=== PATIENT | female | born 1990 | race Caucasian/White ===

== ENCOUNTER 2022-10-26 08:00 | Outpatient (RCR) | payer MEDICAID, SELFPAY ==
--- NOTE | 2022-10-26 10:12 | BH.SGPN.GN ---
Behaviors/Verbalizations/Mental Status: []Eye contact is good. Motor activity is appropriate. Appearance is casual. Speech is Appropriate. Mood is anxious and dysthymic. Affect is congruent. Thoughts are linear and logical. No evidence of psychosis. Client Response/Progress/Benefit: []Pt new to iop tx, did well to remain an engaged participant in group discussions. Attentive during psychoeducation on SMART goals (Specific, Measurable, Achievable, Realistic, and Time-bound) and engaged in group experiential activity. Participated in an interactive discussion with peers in which they worked together to define what a goal is and the benefits of having goals. Benefits identified included; provides motivation, increased confidence, needed for growth, gives a sense of accomplishment, and help promote healthy change behaviors. Participated in interactive discussion in which group identified barriers to setting goals and following through with goals. Barriers identified included; lack of motivation, procrastination, criticism from self/others, unrealistic expectations, outside stressors, and not knowing where to start. Benefited from increased awareness of benefits and strategies for goal-setting. Will continue in IOP to prevent decompensation, improve mood stability, and improve ability to function at baseline. Narrative Note: []
--- NOTE | 2022-10-26 11:12 | BH.SGPN.GN ---
Behaviors/Verbalizations/Mental Status: []Eye contact is good. Alert and oriented. Motor activity is appropriate. Appearance is casual. grooming is appropriate. Speech is Appropriate. Mood is depressed. Affect is congruent. Thoughts are linear and logical. No evidence of psychosis or hallucinations. Client Response/Progress/Benefit: []Client was engaged during discussion and willing to complete the worksheet challenging them to develop a personal SMART goal. Client chose the goal of taking her medications as prescribed each day for a week. Client stated this will benefit her by establishing a more consistent routine and improving mood stability. Client identified barriers which included: forgetting, lack of time, procrastination, and running out of meds. Client receptive to identifying solutions for these barriers and willing to begin working on this goal. Benefited from this group by developing a short-term SMART goal related to mental health. Will continue IOP tx to improve mental health sx management and prevent decompensation. Narrative Note: []
--- NOTE | 2022-10-27 09:05 | BH.SGPN.GN ---
Behaviors/Verbalizations/Mental Status: [] Eye contact is good. Motor activity is appropriate. Appearance is casual. Speech is Appropriate. Mood is euthymic. Affect is congruent. Thoughts are linear and logical. No evidence of psychosis. Reviewed daily check in sheet and pt reports 3/5 for suicidal thoughts and 3/5 for intent. This is consistent with yesterday's scores. Client Response/Progress/Benefit: [] Pt participated at times during the group discussions. Attentive. Daily symptom tracker notes 3/5 for depression and 3/5 for anxiety. Reports several mental health wins since yesterday which included ?going to the gym ?for the first time in several months and cleaning her house. States that this was the first time that she thoroughly cleaned the house in a long time as well. Increased motivation yesterday after attending her first IOP day. Shared stressors. Benefited from group support, encouragement, and feedback. Narrative Note: []
--- NOTE | 2022-10-27 10:00 | BH.SGPN.GN ---
Behaviors/Verbalizations/Mental Status: []Pt alert and oriented, casually dressed and groomed. Eye contact good. Motor activity appropriate. Speech within normal limits. Affect constricted, mood anxious and depressed. Thoughts linear, logical, no signs of hallucinations or delusions. Client Response/Progress/Benefit: []Pt was an active participant AEB contributing to discussion, taking notes, and engaging in group activity. Connected with the topic of pitfalls and listened to group discussion on barriers that prevent from choosing a healthier path to mental wellness. Group worked together to identify examples of personal pitfalls which included; not setting boundaries, using unhealthy coping skills, and procrastination. Pt did well in the group activity, able to make connections to how lack of communication and awareness make it nearly impossible to overcome pitfalls. Pt benefited from group as pt learned to better identify potential barriers to improving mental health symptoms. Pt will continue IOP tx to prevent decompensation, improve overall functioning, and reduce negative thinking patterns. Narrative Note: []
--- NOTE | 2022-10-27 11:00 | BH.SGPN.GN ---
Behaviors/Verbalizations/Mental Status: []Pt alert and oriented, neatly dressed and groomed. Eye contact good. Motor activity appropriate. Speech within normal limits. Affect congruent to mood, mood anxious and depressed. Thoughts linear, logical, no signs of hallucinations or delusions. Client Response/Progress/Benefit: []Pt receptive of session, engaged throughout AEB pt actively listening and contributing to discussion, as well as taking notes.? Pt participated in the experiential activity and did well to communicate ideas with peers and manage emotions. Pt and group processed how the emotions and perspective of the group impacted the activity. Group worked together to identify different coping skills to help manage pitfalls. Pt identified pitfalls they struggle with such as feeling guilty ?constantly,? black and white thinking, and lack of boundaries. ?Pt plans to work on these pitfalls by continuing coming to IOP and learning coping skills. Benefited from identifying personal pitfalls and strategies to overcome these pitfalls. Will continue IOP tx to prevent decompensation, improve daily functioning, and combat distorted thought patterns. Narrative Note: []
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
--- NOTE | 2022-10-28 10:10 | BH.SGPN.GN ---
Behaviors/Verbalizations/Mental Status: []Pt alert and oriented, neatly dressed and groomed. Eye contact good. Motor activity appropriate. Speech within normal limits. Affect constricted, mood depressed. Thoughts linear, logical, no signs of hallucinations or delusions. Client Response/Progress/Benefit: []Pt participated at times during group discussions. Attentive during psychoeducation on communication styles. Participated during interactive discussion on obstacles to effective communication which included; giving the silent treatment, assumptions, and communicating through behaviors. Pt was placed in small group and was engaged in identifying benefits and consequences of each communication style. Pt reports connecting most with the passive communication style which results in pt not getting needs met. Benefited from increased understanding of communication styles and the impact they have on mental wellness. Will continue in IOP to prevent decompensation, improve daily functioning, and increase healthy coping skills. Narrative Note: []
[2022-10-28 10:35] VITALS: BP 159/108; PULSE 76
--- NOTE | 2022-10-28 11:10 | BH.SGPN.GN ---
Behaviors/Verbalizations/Mental Status: []Client alert and oriented, casually dressed and groomed. Eye contact fair. Motor activity appropriate. Speech within normal limits. Affect constricted, mood anxious. Thoughts linear, logical, no signs of hallucinations or delusions. Client Response/Progress/Benefit: []Client responded well to session AEB client listening attentively to others and providing input during group discussion on the pay offs and costs of the different communication styles. Client stated she is most often a passive communicator because finds it easier to take the blame in situations instead of stand up for herself. Client stated being passive has negatively impacted her self-esteem and confidence. Client used mostly communication during activity, listened to others ideas. Attentive during psychoeducation on assertive communication and I statements. Client seemed to benefit from increasing awareness of healthy strategies to improve communication. Client will continue IOP tx to improve daily functioning, increase use of healthy coping skills and prevent decompensation. Narrative Note: []
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
--- NOTE | 2022-10-28 13:07 | BH.DR.ITP ---
Initial Treatment Plan Patient Information Visit Information: ADMISSION DATE: EXPECTED LOS: 4-6 weeks Problems/Symptoms Problem #1:: Mood instability Symptom:: Sadness, anhedonia, hopelessness, worthlessness, guilt, biological disruption of sleep, passive thoughts of , decreased concentration, passive suicidal ideation Problem #2:: Anxiety Symptom:: Worry, rumination, panic attacks, flashbacks, avoidance, reexperiencing
--- NOTE | 2022-10-28 15:42 | BH.MDN_ITS ---
Multi-Disciplinary Note - Note 45-min Individual Time Started:: 11:40 Date: 10/28/22 Purpose of session/treatment goals addressed:: Purpose of session was to gather background information, build rapport, identify current symptoms and stressors, and identify treatment goals for IOP. 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 Client shared she has an extensive history of dating current X off and on for the last 15 years. Client reported in 2019 she got from her ex-. Client shared she shares custody of two children with her ex-. Client stated he lives in [place] so doesn't see the children frequently. Client stated following the divorce she started dating her now ex-girlfriend. Client shared the first year of the relationship went well and client was in a healthy mindset the time. Client reported her now ex-girlfriend started to drink alcohol often during their second year of being together which led to significant issues within their relationship. Client stated her ex frequently cheated on client in the last year or two of their rela tionship. Client reported she would forgive her ex but nothing changed. 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 Client reported she continues to communicate with her ex-girlfriend. Client became tearful when discussing the idea of cutting off contact with her ex. Client says she is currently dating somebody else for the last two months but is having a hard time not communicating with her ex. Client reported her self-esteem and confidence is low which she believes contributes to her maintaining connection with her ex because she's not sure she deserves better. Client reported her current girlfriend is kind, understanding, and ?doesn't have any red flags?. Client stated she has done an IOP in the past after inpatient hospitalization and 2015. Client reported she found the program to be helpful and is hopeful being reminded of healthy coping skills can get her back on track. 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 Client stated she is having difficulty with depressed mood and anxiety. Client reported having decrease motivation which leads to not getting her housework and college work completed. Clear responded well to psychoeducation about behavior activation. Client worked with therapist to create small To Do List in which client can choose one thing from each list per day with goal of accomplishing three small tasks daily. Client stated she jakub sosaes this goal is realistic. Risks/Concerns:: Pt reports suicidal thoughts daily, denies suicidal intention or plan. Client's two children are protective factors. Future focused. Reports able to keep self safe. Progress Toward Goals/Plan:: No progress observed given it's client's second day in IOP. Session focused on building rapport and developing individual treatment goals while in IOP. Client to continue IOP to improve daily functioning, increase healthy coping, and prevent decompensation. Time Stopped:: 12:30
--- NOTE | 2022-10-28 17:01 | BH.MTP_ITS ---
Master Treatment Plan - Patient Information Program Physician:: Dr. Mcgarry Primary Therapist:: Dodie Radford, [facility] - Psychiatric Diagnoses Psychiatric Diagnoses:: 1. Bipolar 2 disorder. 2. Generalized anxiety disorder. 3. PTSD. 4. Cluster B traits. 5. History of bulimia with purging by emesis Diagnosis Code(s):: F31.81 - Estimated LOS Estimated LOS (in weeks):: 6 Problem/Goal #1 - Problem/Goal #1 Stated Goal:: Client will improve mood management and reduce suicidal ideations, feelings of hopelessness, and depressive symptoms. Functional Impact: The patient is a 32-year-old female with a history of anxiety and bipolar disorder who referred herself to the [facility] IOP program for worsening symptoms of depression and passive thoughts of . She recently had a break-up with a longtime girlfriend she has been on and off with since many years. Pt reports due to break up she had additional stressors of moving to a new house, children adjusting to a new school and daycare, and changing job locations. Mental health has been impacting her work functioning AEB being sent home several times due to crying at work. The patient endorses a depressed mood with low energy, feelings of hopelessness, worthlessness, guilt, anhedonia, and low motivation. She has 2-3 panic attacks per week. - Objectives Objective #1 Stated Objective: Client will learn and utilize 2-3 healthy coping strate gies/distress tolerance skills to manage mood instability. Interventions: Therapist and group will utilize CBT techniques to assist client with understanding the connection between thoughts, feelings and behaviors. Education will be provided on behavioral activation. Therapist will assist client in learning internal coping strategies to manage depressive symptoms, along with helping client identify triggers. Therapist and group will teach DBT distress tolerance skills to improve emotion regulation. Discharge Criteria: Client will have achieved this goal when can verbalize and has practiced at least 2 healthy coping strategies that successfully manage depressive symptoms. Objective #2 Stated Objective: Pt will decrease depressive symptoms AEB pt?s score on the DSM 5 cross-cutting measure and improve pt?s daily functioning. Interventions: Through groups and individual therapy, pt will be provided with education on cognitive distortions, mistaken beliefs, and identifying and combating negative self-talk. Therapist will assist pt with getting back into the activities she once enjoyed as well as increasing healthy coping strategies. Discharge Criteria: Pt will have met this goal when pt?s score on the DSM 5 cross cutting measure for depression has been decreased and per pt?s report daily functioning has improved. Problem/Goal #2 - Problem/Goal #2 Stated Goal:: Client will reduce overall frequency, intensity, and duration of anxiety to improve functioning AEB self-report and reduction on the anxiety domain of the DSM-5 cross-cutting scales. Functional Impact: The patient is a 32-year-old female with a history of anxiety and bipolar disorder who referred herself to the [facility] IOP program for worsening symptoms of depression and passive thoughts of . She recently had a break-up with a longtime girlfriend she has been on and off with since many years. Pt reports due to break up she had additional stressors of moving to a new house, children adjusting to a new school and daycare, and changing job locations. Mental health has been impacting her work functioning AEB being sent home several times due to crying at work. The patient endorses a depressed mood with low energy, feelings of hopelessness, worthlessness, guilt, anhedonia, and low motivation. She has 2-3 panic attacks per week. - Objectives Objective #1 Stated Objective: Client will learn and implement 2-3 calming skills to reduce overall anxiety and manage anxiety. Interventions: Through individual and group counseling will teach the client calming/relaxation skills (e.g., muscle relaxation, mindful breathing) and how to discriminate better between relaxation and tension; teach the client how to apply these skills to his/her daily life. Discharge Criteria: Able to identify and consistently use 3 calming skills for anxiety. Objective #2 Stated Objective: Client will identify 2-3 cognitive distortions that lead to rumination and learn 2-3 ways to manage these thoughts to better manage anxiety as shown by reduced DSM-5 scores for anxiety. Interventions: Through individual and group counseling will provide education on the most common cognitive distortions and teach client the connection between thoughts, emotions, and feelings. Therapist will assist client in identifying, challenging, and replacing dysfunctional thoughts with positive, more realistic thoughts. Discharge Criteria: Able to identify 2-3 common cognitive distortion that exacerbate his anxiety and be able to identify strategies to reframe and challenge these distortions.
== END 2022-10-28 23:59 ==
LOC: BHIOP 08:00
PROVIDERS: Referring Provider Psychiatry & Neurology Psychiatry; Visit Provider Psychiatry & Neurology Psychiatry
DX: F31.81 Bipolar II disorder (principal); F43.10 Post-traumatic stress disorder, unspecified; F41.1 Generalized anxiety disorder
CPT/HCPCS: 90792; H2012; H2020; S9480; T1002; 90834

== ENCOUNTER 2022-10-29 08:23 | Outpatient (RCR) | payer MEDICAID, SELFPAY ==
[2022-10-29 00:44] VITALS: BP 159/108; PULSE 76
--- NOTE | 2022-11-09 10:00 | BH.SGPN.GN ---
Behaviors/Verbalizations/Mental Status: [] Eye contact is good. Motor activity is appropriate. Appearance is casual. Speech is Appropriate. Mood is euthymic. Affect is congruent. Thoughts are linear and logical. No evidence of delusions or hallucinations. Client Response/Progress/Benefit: [] Pt was an active participant in group discussions and activity. Attentive during psychoeducation and provided insight into obstacles in the way of mental wellness. Pt shared her picture depicting her current mental health reality with the group. She described her current reality as feeling overwhelmed, difficulty accomplishing goals, and difficulty functioning. Pt's desired reality is having healthy support, feel more stable, and improved functioning. Pt identified barriers that get in the way of desired reality include: poor boundaries, difficulty managing depression, afraid to ask for help, and lack of self-care. Benefited from taking look at current mental health state and obstacles for progress. Will continue in IOP to improve confidence, challenge negative thinking, and prevent decompensation.
--- NOTE | 2022-11-09 11:08 | BH.SGPN.GN ---
Behaviors/Verbalizations/Mental Status: []Pt alert and oriented, neatly dressed and groomed. Eye contact good. Motor activity appropriate. Speech within normal limits. Affect congruent, mood euthymic. Thoughts linear, logical, no signs of hallucinations or delusions. Client Response/Progress/Benefit: []Pt engaged during activity, encouraging peers and contributed as group brainstormed ideas on how to cope with internal barriers that keep pts stuck from moving towards goals. Able to identify barriers to desired reality. Identified barriers to current reality to include: poor boundaries, lack of motivation, being afraid to ask for help, and lack of self-care. Pt wants to work on overcoming the barrier of lack of motivation by setting goals for one small task at a time. Benefited from group by identifying obstacles and solutions to desired reality.? Pt will continue IOP tx to increase mood stability, combat distortions, and improve self-esteem. Narrative Note: []
--- NOTE | 2022-11-09 15:15 | BH.MDN ---
Multi-Disciplinary Note - Note 45-min Individual Time Started:: 09:10 Date: 11/09/22 Purpose of session/treatment goals addressed:: Purpose of session was to address goals 1 and 2 from MTP. Eye Contact:: Good Motor Activity:: Appropriate Appearance:: Casual Speech:: Appropriate Mood:: Euthymic Affect:: Congruent Thoughts:: Linear, Logical, No evidence of hallucinations/delusions noted Staff Interventions:: CBT techniques, rapport building, strengths perspective, goal setting, taught coping skills - relationships on a spectrum (healthy, unhealthy, and abusive) characteristics. Client Response:: Client reported she accomplished goal from last session of doing 3 intentions each day. Client stated she was able to get her bedroom clean by following the intentions. Client stated she also believes her Wellbutrin has been improving her mood, decreased racing thoughts, and improved motivation which has made it easier to apply the skills/strategies discussed in therapy. Client stated she made the decision to break up with her girlfriend because realized she couldn't be the best partner for her girlfriend at this time. Client reported she thinks it will be helpful to be single so she can focus on improving herself and learn to be okay if she isn't in a relationship. Client stated she is continuing to talk with her ex-girlfriend that she was with for 3 years. Client reported her ex is getting addiction treatment, but client is being cautious with her connection to this ex. Client recognizes being raised in an environment in which her biological father was a alcoholic and seeing her mom in additional unhealthy relationships, has impacted the relationships client has maintained throughout her life. Client stated she believes her low confidence and decreased self-esteem also impacts relationships/social connections she gets involved in. Client connected with material provided about healthy relationships, unhealthy relationships, and abusive relationships. Client reported she struggles with identifying what she is good at, but with time stated she is a good mom, caring, and creative. Client stated she enjoys crafting, video games, and reading. Receptive to strategies on increase confidence. Client stated small goal is to either do a lauren work or cross stitch to get back into things she used to enjoy. Client open to starting an accomplishments journal and will continue to identify daily intentions. Risks/Concerns:: Denies current suicidal ideation, plan or intention. Client future focused. Children are identified protective factors. Progress Toward Goals/Plan:: Progress noted with client reporting improved mood, decreased racing thoughts, and improved motivation. Client followed through with goal from last session of completing three intentions per day and focusing on cleaning her bedroom. Client made decision to end current relationship to give time to focus on being independent and improving herself. Client is to continue IOP to maintain gains, continue use of healthy coping skills, and prevent decompensation. Time Stopped:: 10:00
--- NOTE | 2022-11-10 09:00 | BH.SGPN.GN ---
Behaviors/Verbalizations/Mental Status: []Eye contact is good. Motor activity is appropriate. Appearance is casual. Speech is Appropriate. Mood is euthymic. Affect is congruent. Thoughts are linear and logical. No evidence of psychosis. Reviewed daily check in sheet, no signs of suicidal ideations, plan, or intent. Client Response/Progress/Benefit: [] Pt responded well to session, attentive and providing support. Pt reports feeling relieved this morning as pt has been very consistent with her medications and making it a priority. Pt shared because of this, pt feels like her mood has improved and she is able to utilize more coping skills. Pt has been using mindfulness to be more present and she is also experiencing less racing thoughts. Pt's stressor today is that parenting is difficult and her kids were not listening well this morning. Pt appeared to benefit from giving herself credit in medication compliance. Pt will continue IOP tx to promote mood stability, improve self-care, and reduce negative thinking. Narrative Note: []
--- NOTE | 2022-11-10 10:10 | BH.SGPN.GN ---
Behaviors/Verbalizations/Mental Status: [] Eye contact is good. Motor activity is appropriate. Appearance is casual. Speech is Appropriate. Mood is anxious. Affect is congruent. Thoughts are linear and logical. No evidence of psychosis. Client Response/Progress/Benefit: [] Pt participated at times during the group discussions. Active participant in experiential activity. Attentive during psychoeducation. Pt provided input during discussion on types of social supports which included; family, friends, PCP, mental health providers, support groups, pets, ourselves, community classes, etc. Pt along with the group identified mental health benefits of social support which patient and group identified as; it can help with emotional release, help one to feel heard, validation, distraction, they can encourage us, provide motivation, provide accountability, and boost our mood. Pt along with peers also worked together to identify obstacles to utilizing support which included; feeling like one doesn't deserve support, past negative experiences, cognitive distortions, and avoidance/mood. Benefited from increased awareness of mental health benefits of social support and obstacles that prevent one from utilizing support. Will continue in IOP to maintain safety, prevent decompensation, and increase healthy coping skills. Narrative Note: []
--- NOTE | 2022-11-11 09:05 | BH.SGPN.GN ---
Behaviors/Verbalizations/Mental Status: [] Eye contact is good. Motor activity is appropriate. Appearance is casual. Speech is Appropriate. Mood is anxious. Affect is congruent. Thoughts are linear and logical. No evidence of psychosis. Reviewed daily check in sheet and no reports of suicidal ideations or intent. Client Response/Progress/Benefit: [] Pt participated at times during the group discussion. Attentive. Emotion for today is ?Calm?. Daily symptom tracker notes 2/5 for depression and anxiety. Mental health wins include ending a relationship. Shared how this was a win b/c in the past she would have avoided the conflict and awkwardness of breaking up with someone. Shared how this often led to being in relationships she did not want to be in for extended periods of time which impacted her mental health. She is practicing being ?more in the present? and has noticed benefits of this with her kids. Current stressors is finances. Benefited from group support, encouragement, and feedback. Will continue in IOP to prevent decompensation, stabilize mood, and increase healthy coping skills. ? Narrative Note: []
--- NOTE | 2022-11-11 10:10 | BH.SGPN.GN ---
Behaviors/Verbalizations/Mental Status: []Pt alert and oriented, neatly dressed and groomed. Eye contact good. Motor activity appropriate. Speech within normal limits. Affect congruent, mood euthymic. Thoughts linear, logical, no signs of hallucinations or delusions. Client Response/Progress/Benefit: []Pt was an active participant in group discussions. Participated with peers in experiential activity. Pt participated in an interactive discussion with peers in which they worked together to define what coping skills are. Group then identified unhealthy coping skills which included; isolating, sleeping to avoid, drugs and alcohol, and poor boundaries. Pt displayed insight that she struggles with sitting with the uncomfortable, but pt is learning to set more boundaries. Reflected that this adds more stress to pt?s life and worsens mental health symptoms. Benefited from increased awareness and education the benefits of having a healthy coping repertoire and consequences of unhealthy coping on mental health and relationships. Will continue IOP tx to promote mood stability, increase use of healthy coping skills, and combat distortions. Narrative Note: []
--- NOTE | 2022-11-11 11:10 | BH.SGPN.GN ---
Behaviors/Verbalizations/Mental Status: []Client alert and oriented, casually dressed and groomed. Eye contact good. Motor activity appropriate. Speech within normal limits. Affect congruent, mood euthymic. Thoughts linear, logical, no signs of hallucinations or delusions Client Response/Progress/Benefit: []Client responded well to session, taking notes and contributing. Group discussed the different categories of coping skills which included distraction, emotional release, grounding, self-love, and thought challenging. Client participated in creating a coping skills ?menu? from the five categories of coping skills. Client's coping skill menu included: journaling, mindfulness, talking to supports, setting boundaries, and reminding self two truths can exist at the same time. Appeared to benefit from increasing repertoire of healthy coping skills. Will continue IOP to continue use of healthy coping, challenge distorted thoughts, maintain boundaries, and prevent decompensation.
--- NOTE | 2022-11-11 11:47 | PCM.BH.PN_ITS ---
Progress Note Progress Note: History of Present Illness/Interim History: The patient is a 32-year-old female with a history of anxiety and bipolar disorder who is seen in follow-up at the [facility] health IOP program. I last saw the patient 2 weeks ago and at that time Wellbutrin was added to her me dication regimen. The patient states that she has been learning valuable skills in the IOP program and according to the staff the patient has been engaged in making progress. She is still broken up with her ex-girlfriend. The patient states that her sleep is better and she is not napping as much during the day now. She feels the Wellbutrin has helped her have more energy and feel more motivated during the day to be able to get things done. She states that the Wellbutrin is really helping her to be able to get out of bed in the morning and feel optimistic. She is tolerating it well with no side effects. She denies any hopelessness now. She denies passive thoughts of and suicidal ideation also. Work is now going better for her also. She has no symptoms of sofiya. Current Psychiatric Medications: [] Wellbutrin XL 150 mg p.o. every morning (started 2 weeks ago); Zoloft 150 mg p.o. daily; BuSpar 10 mg p.o. twice daily Mental Status Examination: [] The patient is a 32-year-old female who appears normal for stated age and is casually dressed and groomed with good hygiene. She has no psychomotor agitation or retardation. She is cooperative and pleasant during the interview. Eye contact is good and speech is normal rate and rhythm and fluent with no pressure. Mood is mildly depressed. Affect is full and normal. Thought process is goal-directed and organized. Thought content: There is no evidence of passive thoughts of or passive suicidal ideation. There is no evidence of active suicidal ideation, plan for suicide, hallucinations, delusions or thoughts of self-harm. The patient feels hopeful for the future. Reality testing is intact. Judgment is intact. Insight is good. Impulsivity is moderate to high. Diagnoses: [] 1. Bipolar 2 disorder 2. Generalized anxiety disorder 3. PTSD 4. Cluster B traits 5. History of bulimia with purging Plan: [] The patient will continue the IOP program in behavioral health at [facility] as the structure, support, education and group therapy will hopefully prevent worsening of the patient's symptoms which might require hospitalization. She felt safe during the interview and if it anytime she does not feel safe she will let us know or go to the emergency room. The risks, options, possible complications and side effects of the medications were again discussed with the patient and she understands and accepts these. This includes the risks of Wellbutrin and Zoloft inducing a hypomanic or possibly even manic episode down the road. We will consider starting Lamictal later depending on how the patient is doing. Refill is sent in on the Wellbutrin XL today. She will continue to follow-up with her outpatient providers and I will see the patient in follow-up in 2 weeks.
--- NOTE | 2022-11-16 10:15 | BH.SGPN.GN ---
Behaviors/Verbalizations/Mental Status: []Client alert and oriented, casually dressed and groomed. Eye contact good. Motor activity appropriate. Speech within normal limits. Affect congruent, mood anxious and dysthymic. Thoughts linear, logical, no signs of hallucinations or delusions. Client Response/Progress/Benefit: []Client receptive to session AEB contributing to discussion, as well listening attentively to others, and taking notes. Worked with group to brainstorm the positive and negative aspects of stress on physical and mental health. Group did well to identify the benefits of stress as well as the impact of distress on performance, relationships, and mental health. Client identified their personal top stressors as: managing the daily morning routine, keeping up with housework, and finances. Client reports when the stress overflows client reacts with shutting down, letting things pile up, and avoidance. Client seemed to benefit from increased awareness of current stressors and impact stress has on mental health. Recommended to continue IOP tx to further stabilize moods, continue to promote healthy coping, and prevent decompensation. Narrative Note: []
--- NOTE | 2022-11-16 11:15 | BH.SGPN.GN ---
Behaviors/Verbalizations/Mental Status: []Pt alert and oriented, casually dressed and groomed. Eye contact good. Motor activity appropriate. Speech within normal limits. Affect congruent, mood euthymic. Thoughts linear, logical, no signs of hallucinations or delusions. Client Response/Progress/Benefit: []Pt engaged participant AEB listening attentively to others and contributing to discussion. Attentive during psychoeducation on the 4 A's of Coping with Stress (Avoid, Alter, Adapt, Accept). Participated in experiential activity in which group members had to utilize stress management skills in the moment. Pt did well to problem-solve and express ideas to peers. Pt engaged in review of the 4 A?s for managing stress. Pt reported she wants to work on managing her stressor of morning routine. Pt reported she is going to alter current routine by getting up after first alarm and teaching kids to be more independent in the morning. Pt stated she is going to bed earlier, setting out things needed the night before, and packing lunch at night are all ways she can be more proactive to decrease stress in the morning. Seemed to benefit from learning about stress management skills. Pt to continue IOP to increase consistent use of skills, challenge distortions, and prevent decompensation.
--- NOTE | 2022-11-25 10:08 | BH.SGPN.GN ---
Behaviors/Verbalizations/Mental Status: []Pt alert and oriented, neatly dressed and groomed. Eye contact good. Motor activity appropriate. Speech within normal limits. Affect congruent, mood euthymic. Thoughts linear, logical, no signs of hallucinations or delusions. Client Response/Progress/Benefit: []Pt participated at times during the group discussions. Participated during interactive discussion on defining conflict (internal/external) and possible benefits to conflict. Attentive during psychoeducation on conflict styles and engaged during small group activity in which peers identified the benefits and consequences to each conflict style. Pt identified that their primary conflict style as accommodating. Pt able to see how this leads to her not getting her needs met and more conflict. Benefited from increased awareness of the impact of conflict styles in mental health. Will continue in IOP to reinforce healthy coping skills and boundaries. ?? Narrative Note: []
--- NOTE | 2022-11-25 10:34 | PCM.BH.PN ---
Progress Note Progress Note: History of Present Illness/Interim History: The patient is a 32-year-old female with a history of anxiety and bipolar disorder who is seen in follow-up at the [facility] health IOP program. I last saw the patient 2 weeks ago and at that time no medication changes were made. The patient continues to improve slowly however she feels that she has somewhat plateaued since her initial improvement on Wellbutrin. She feels her mood is better and much less depressed than it was before. Her energy level is improved but less improved than it was the first few weeks on the Wellbutrin. She is having no crying spells now. She is having no signs or symptoms of sofiya or hypomania whatsoever. Her recent symptom chart showed that her symptoms decreased by 38%. She is tolerating the Wellbutrin well and has no side effects on it. She has not engaged in any purging or vomiting whatsoever. She has had some attendance issues due to her children being sick this winter but feels that she is learning valuable skills in the program. She denies hopelessness, worthlessness. She denies passive thoughts of , suicidal ideation, homicidal ideation, hallucinations or delusions. She is doing well at work. Current Psychiatric Medications: [] Wellbutrin XL 150 mg p.o. every morning (x1 month now); Zoloft 150 mg p.o. daily; BuSpar 10 mg p.o. twice daily Mental Status Examination: [] The patient is a 32-year-old female who appears normal for stated age and is casually dressed and groomed with good hygiene. She is ambulatory with a normal gait and has no psychomotor agitation or retardation. She is cooperative and pleasant during the interview. Eye contact is good and speech is normal rate and rhythm and fluent with no pressure. Mood is mildly depressed. Affect is full and normal. Thought process is goal-directed and organized. Thought content: There is no evidence of passive thoughts of , suicidal ideation, plan for suicide, homicidal ideation, delusions, hallucinations or symptoms of sofiya. Reality testing is intact. Judgment is intact. Insight is good. Impulsivity is moderate. Diagnoses: [] 1. Bipolar 2 disorder 2. Generalized anxiety disorder 3. PTSD 4. Cluster B traits 5. History of bulimia with purging in remission Plan: [] The patient will continue the IOP program in behavioral health at [facility] as the structure, support, education and group therapy will hopefully prevent worsening of the patient's symptoms. She felt safe during the interview and if it anytime she does not feel safe she will let us know or go to the emergency room. The risk, options, possible complications and side effects of the medications were again discussed with the patient and she understands and accepts these. She understands that antidepressants can cause more rapid cycling or a hypomanic or possibly even manic episode down the road if the patient is truly bipolar. The patient request to increase the Wellbutrin XL as she feels she could have more improvement in her depression. Prescription is sent in for this. I will see the patient in follow-up in several weeks and she will let us know if she has any issues.
== END 2022-11-28 23:59 ==
LOC: BHIOP 08:23
PROVIDERS: Referring Provider Psychiatry & Neurology Psychiatry; Visit Provider Psychiatry & Neurology Psychiatry
DX: F31.81 Bipolar II disorder (principal); F41.1 Generalized anxiety disorder; F43.10 Post-traumatic stress disorder, unspecified; F50.2 Bulimia nervosa; Z79.899 Other long term (current) drug therapy
CPT/HCPCS: 99213; H2012; H2020; S9480; 90832; 90834

== ENCOUNTER 2022-12-01 07:29 | Outpatient (RCR) | payer MEDICAID, SELFPAY ==
[2022-11-29 00:35] VITALS: BP 159/108; PULSE 76
--- NOTE | 2022-12-01 09:00 | BH.SGPN.GN ---
Behaviors/Verbalizations/Mental Status: []Eye contact fair to good, casually dressed, motor activity appropriate, speech normal rate and tone, mood anxious and euthymic, congruent affect, thoughts linear and intact, no evidence of delusions or hallucinations. Reviewed pt's symptom tracker, reports suicidal ideation within pt baseline and denies active plan or intent as of this date 12/01/22. Client Response/Progress/Benefit: []Pt responded well to session, attentive and providing supportive feedback throughout. Pt reports feeling ?anxious this morning as she is not feeling well. Did well to identify current mental health wins which included continuing to take steps to assert her own independence through using opposite action to complete tasks she has not previously had to do. Pt provided the example of getting her oil changed. Shared feeling empowered as a result. Additional mental health win included setting aside scheduled time for daily journaling. Reports feeling this has had positive impacts on her mood and perspective as a result. Appeared to benefit from group discussion and supportive environment. Recommended continued IOP tx to continue to improve consistency of healthy skill application, promote mood stability and stress management, as well as prevent decompensation. Narrative Note: []
--- NOTE | 2022-12-01 10:15 | BH.SGPN.GN ---
Behaviors/Verbalizations/Mental Status: []Pt alert and oriented, neatly dressed and groomed. Eye contact good. Motor activity appropriate. Speech within normal limits. Affect congruent, mood euthymic. Thoughts linear, logical, no signs of hallucinations or delusions. Client Response/Progress/Benefit: []Pt responded well to session, contributing to discussion and engaged during the activity. Pt identified the benefits of change which included increased resilience and better relationships. Worked with the group to identify barriers to change and pt identified personal barrier as distortions. Pt participated along with group in activity where they identified and discussed the emotions related to change. Pt participated in discussion on the change process and personal experiences with implementing change in past. Benefited from increased awareness and understanding of emotions, benefits, and barriers related to change. Will continue IOP tx to further improve mood stability, increase motivation, and increase use of healthy coping skills. ? Narrative Note: []
--- NOTE | 2022-12-01 11:10 | BH.SGPN.GN ---
Behaviors/Verbalizations/Mental Status: []Pt alert and oriented, casually dressed and groomed. Eye contact good. Motor activity appropriate. Speech within normal limits. Affect congruent, mood euthymic. Thoughts linear, logical, no signs of hallucinations or delusions. Client Response/Progress/Benefit: []Pt responded well to session, attentive. Did well to process activity and work with group to relate the strategies used to overcome barriers in the activity to managing change in own life. Pt also stepped out of her comfort zone today by participating instead of declining. Pt identified wanting to work on having more structure and routine in the mornings. Pt shared she finds that when she stays in bed longer, she is less productive and her mood is worse. Pt?s goal for the next day is to get up at her first alarm. Pt will continue IOP tx to promote gains, increase motivation, and improve self-care. Narrative Note: []
--- NOTE | 2022-12-02 09:05 | BH.SGPN.GN ---
Behaviors/Verbalizations/Mental Status: []Pt alert and oriented, neatly dressed and groomed. Eye contact good. Motor activity appropriate. Speech within normal limits. Affect constricted, mood indifferent. Thoughts linear, logical, no signs of hallucinations or delusions. Reviewed pt?s symptom tracker and pt denies any active SI, plan, or intent as of 12/02/2022. ? Client Response/Progress/Benefit: [] Pt responded well to session, attentive and offering supportive statements. Pt reports feeling indifferent this morning as pt is catching warning signs of feeling more depressed and anxiety. Pt shared belief that this could be due to her period starting soon and the group had discussion about PMDD. Pt shared she is using opposite action to prevent herself from slipping into old, unhealthy patterns of behavior. Pt shared she has also been practicing being present with her kids and sticking to a consistent schedule. Pt appeared to benefit from group feedback and reflecting on her use of healthy coping skills. Pt will continue IOP tx to promote mood stability, combat negative thinking, and further improve daily functioning. Narrative Note: []
--- NOTE | 2022-12-02 10:10 | BH.SGPN.GN ---
Behaviors/Verbalizations/Mental Status: [] Eye contact is good. Motor activity is appropriate. Appearance is casual. Speech is Appropriate. Mood is depressed. Affect is flat. Thoughts are linear and logical. No evidence of psychosis Client Response/Progress/Benefit: [] Pt was an active participant in group discussion. Attentive during psychoeducation. Pt and peers provided thoughts and feedback on the definition of crisis and types of crisis events. Participated in interactive discussion in which group identified unhealthy responses to crisis which included; alcohol use, drug use, sleeping to escape, binge-eating, lashing out at others, creating conflict to distract, isolating, avoiding responsibilities, not caring for oneself, and overspending. Pt was able to identify her top warning signs for being in crisis which were oversleeping, avoiding household tasks. Benefited from increased understanding of crisis and pt's personal crisis warning signs. Will continue in IOP to prevent decompensation, maintain safety, and increase healthy coping skills. Narrative Note: []
--- NOTE | 2022-12-02 11:10 | BH.SGPN.GN ---
Behaviors/Verbalizations/Mental Status: []Client alert and oriented, casually dressed and groomed. Eye contact good. Motor activity appropriate. Speech within normal limits. Affect congruent. Mood euthymic. Thoughts linear, logical, no signs of hallucinations or delusions. Client Response/Progress/Benefit: []Client responded well to session as evidenced by client listening attentively to others and providing strategies during discussion. Client identified her warning signs for crisis and gained further awareness of earliest warning signs. Client created a crisis action plan to help client better manage warning signs for crisis. Client?s action plan for avoiding housework included: breaking tasks into smaller manageable goals, reminding self it can get too overwhelming if she waits to clean, and allow herself to take a break. Client appeared to benefit from creating a crisis action plan and increasing self-awareness. Client to continue IOP tx to continue use of healthy coping skills, challenge distorted thoughts, and prevent decompensation.
--- NOTE | 2022-12-08 10:10 | BH.SGPN.GN ---
Behaviors/Verbalizations/Mental Status: []Eye contact is good. Motor activity is appropriate. Appearance is casual. Speech is Appropriate. Mood is euthymic, anxious. Affect is congruent. Thoughts are linear and logical. No evidence of psychosis. Client Response/Progress/Benefit: []Pt was an attentive and engaged participant in group discussions and experiential activity, providing input throughout. Attentive during psychoeducation on resilience. Participated in interactive discussion with peers on the definition of resilience and where it comes from. Group identified that resilience can be the result of; past experiences, learned behaviors, and observations of others. Group also worked together to identify the benefits of being resilient and how it is related to mental health. Worked well with peers in small group in which they identified factors that contribute to resilience. Benefited from increased awareness of resilience and the factors that contribute to building resiliency. Will continue in IOP to prevent decompensation, maintain mood stability, and continue to promote active skill application. Narrative Note: []
--- NOTE | 2022-12-08 11:10 | BH.SGPN.GN ---
Behaviors/Verbalizations/Mental Status: []Pt alert and oriented, casually dressed and groomed. Eye contact good. Motor activity appropriate. Speech within normal limits. Affect congruent, mood euthymic, anxious. Thoughts linear, logical, no signs of hallucinations or delusions. Client Response/Progress/Benefit: []Pt responded well to session AEB providing input throughout discussion on resilience factors, as well as completing the resilience worksheet provided. Pt participated in the discussion of each resiliency component and worked cooperatively with group to identify strategies to enhance each of the components discussed. Pt reported doing well with the resilience traits of self-awareness, make connections, and move towards your goals. Pt would like to continue to develop resilience trait of self-care by getting back into her interests and hobbies and practicing these at a consistent time daily. Pt seemed to benefit from discussing strategies for improving personal resilience and identifying resilience traits pt already possesses. Will continue IOP tx to further improve mood stability, reinforce healthy coping skills, and continue to promote healthy boundary setting. Narrative Note: []
--- NOTE | 2022-12-08 11:48 | BH.MDN_ITS ---
Multi-Disciplinary Note - Note 45-min Individual Time Started:: 09:15 Date: 12/08/22 Purpose of session/treatment goals addressed:: Purpose of session was to address goals 1 and 2 from MTP. Eye Contact:: Good Motor Activity:: Appropriate Appearance:: Casual Speech:: Appropriate Mood:: Euthymic Affect:: Congruent Thoughts:: Linear, Logical, No evidence of hallucinations/delusions noted Staff Interventions:: thought challenging, CBT techniques, discharge planning, strengths perspective, goal setting, other - self-care benefits Client Response:: Client reported despite missing IOP two times last week due to being sick she has been doing well with her mental health. Pt reported she has been using opposite action to keep her house clean and complete other responsibilities. Pt stated the last couple of days she has noticed a decrease in motivation and feeling more tired. Pt reported she has wanted to lay down but is using opposite action to get things done. Pt is attributing decreased motivation and energy to recently starting her menstrual cycle. Pt stated as she has gotten older her menstrual cycle seems to be impacting her mood more often. Pt agreed it would be helpful to keep track of her cycle so she is aware of when a mood drop could occur. Pt recognizes she struggles with self compassion when she isn't feeling well because she doesn't think she should be sitting down resting. Pt able to slightly challenge perspective that it's okay to relax when not feeling well as long as keeps self accountable to get moving once feels better. Pt reported she is still in contact with her ex-girlfriend, but stated it is going well. Pt shared her ex has been sober for 7 days and is consistently following through with their own treatment. Pt stated she is still being cautious because she doesn't want to ignore any red flags. Pt stated she has not accomplished goal of crafting. Pt reported barrier to crafting is her crafting supplies are in the basement and when she goes downstairs she see's too much clutter. Pt stated when she sees the clutter she tells herself she should be emptying the boxes instead of crafting. 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 With assistance from therapist pt able to note benefits of engaging in self- care. Pt stated goals for the week are to engage in crafting at least once and to empty out one of the boxes in the basement. Risks/Concerns:: Denies suicidal ideation, plan or intention to date. Progress Toward Goals/Plan:: Progress noted with pt reporting overall mood improvement, using healthy skills more consistently, and improved daily functioning. Pt reports decrease in laying around, improved ability to keep get household responsibilities done, and increased confidence. Pt continues to struggle with anxious thoughts about kids and potential relationship. Discussed tentative discharge to be the week of December 21. Pt has been demonstrating consistent treatment progress despite having to miss several IOP sessions due to own sickness and taking care of her sick kids. Pt reported feeling comfortable with plan. Pt to continue IOP to continue use of healthy skills and prevent decompensation. Time Stopped:: 10:00
--- NOTE | 2022-12-15 10:10 | BH.SGPN.GN ---
Behaviors/Verbalizations/Mental Status: [] Eye contact is good. Motor activity is appropriate. Appearance is casual. Speech is Appropriate. Mood is anxious/irritable. Affect is full. Thoughts are linear and logical. No evidence of psychosis. Client Response/Progress/Benefit: [] Pt was an active participant in group discussion. Attentive during psychoeducation. Engaged and participated in experiential activity. Pt along with peers. worked together to define pitfalls in relation to mental health. Group was able to identify several common examples of pitfalls which included; negative automatic thoughts, sad songs, isolation, not communicating, self-harm, impulsive spending, over-committing oneself, and self-sabotage. Able to correlate experiential activity and topic of pitfalls. Able to identify strategies to use in activity (as well as in life) to overcome or manage mental health pitfalls. Benefited from increased understanding of types of common pitfalls that impact mental health. Will continue in IOP to maintain gains, prevent decompensation, and increase healthy coping strategies. Narrative Note: []
--- NOTE | 2022-12-15 16:52 | BH.MDN ---
Multi-Disciplinary Note - Note 45-min Individual Time Started:: 11:15 Date: 12/15/22 Purpose of session/treatment goals addressed:: Purpose of session was to address goals 1 and 2 from MTP. Eye Contact:: Good Motor Activity:: Restless Appearance:: Casual Speech:: Appropriate Mood:: Anxious Affect:: Congruent Thoughts:: Linear, Logical, No evidence of hallucinations/delusions noted Staff Interventions:: thought challenging - identified treatment progress to help combat negative thoughts that she isn't ready for discharge, CBT techniques, discharge planning, strengths perspective, goal setting - small goals for the week, other - reviewed healthy coping skills Client Response:: Client reported today she is feeling anxious about leaving IOP next week. Client stated in the last few days she has been crying more frequently and feeling more discouraged. Client reported she has been slipping back into old habits like not accomplishing chores and having lowered motivation. Client noted this mood change could be attributed to her recently not taking her medications consistently. Client reported in addition to not taking her meds consistently she has been home more frequently with the kids due to them being sick often. Client stated she is unsure if the added stress of having to be as a single parent is also impacting her mood. Client initially struggled with identifying treatment progress but with help able to challenge negative thought patterns. Client noted if she reflects on where she was 5 weeks ago she truly has made significant treatment progress with her mood being improved. Client stated when she first tried the program she was feeling suicidal and she has not had suicidal thoughts in many weeks. Client reported she is doing better with keeping up with her daily chores at home, feeling more engaged with her kids, and when taking meds consistently feels more stable. Agreed with therapist it would be helpful to go back to basics this week in which she will ensure she is on a daily schedule in the morning, getting her kids to bed on time in the evening, engaging in self-care activities, and making sure she accomplishes at least 1 chore each day. Client reported in the last week she has not accomplished her many goals of taking time to craft and she also did not empty any of the boxes in the basement. Client reported this week she will focus on trying to clean out at least 1 box in the basement. Client said she was able to take some self-care time in the last week to play video games. Client reported she thinks she will be ready for discharge next week. Agreed it would be helpful to have a check-in early in the week to make sure she feels ready. Risks/Concerns:: Denies current suicidal ideation, plan or intention to date. Progress Toward Goals/Plan:: Client reporting increased anxiety last few days, however this could be attributed to her recently not taking medications consistently and common anxiety individuals have prior to IOP discharge. Client able to note progress with decreased depression, decreased anxiety, no suicidal thoughts, and improved daily functioning. Plan is for client to discharge from IOP next week unless her mood continues to decline. Time Stopped:: 12:00
--- NOTE | 2022-12-16 09:00 | BH.SGPN.GN ---
Behaviors/Verbalizations/Mental Status: []Pt alert and oriented, neatly dressed and groomed. Eye contact good. Motor activity appropriate. Speech WNL. Mood stressed, affect full. Thoughts linear, logical, no signs of hallucinations or delusions. Reviewed pt's symptom tracker, no risk factors noted for 12/16/22. Denies any active SI. Client Response/Progress/Benefit: []Pt responded well to session, attentive and providing support to peers. Pt reports feeling frustrated this morning as pt's daughter was having sensory issues which resulted in her daughter having a meltdown and pt being late to IOP. Pt shared she was able to help her daughter by hugging her and pt is getting her daughter evaluated for OT. Pt shared she has been taking first group to try and ground herself after a stressful morning. Pt reports she has been cleaning out her car and she has made a lot of progress with this. Pt reflected on how taking this task in small steps has helped pt be successful. Pt appeared to benefit from reflecting on her progress. Pt will continue IOP tx to promote mood stability, further increase the use of healthy coping skills, and improve self-confidence. Narrative Note: []
--- NOTE | 2022-12-16 10:10 | BH.SGPN.GN ---
Behaviors/Verbalizations/Mental Status: []Client alert and oriented, casually dressed and groomed. Eye contact good. Motor activity appropriate. Speech within normal limits. Affect congruent, mood euthymic and anxious. Thoughts linear, logical, no signs of hallucinations or delusions. Client Response/Progress/Benefit: []Client was an active participant in group discussions and activity. Attentive during psychoeducation. Client along with peers were able to identify several negatives on the picture given to the group. Client and peers also identified positives in the picture and made the connection that finding positives is much more difficult. Interactive discussion on the definition of perspective, how perspective is formed, and why perspective is important in treatment. Client along with peers also identified that perspective can either motivate and encourage treatment or become a barrier to receiving help. Client shared currently she has a more hopeful perspective towards life. Client stated current perspective has been impacted by positive experiences in tx and feeling she is making progress towards further improving her mental health. Will continue in IOP to continue use of healthy coping, increase stress management skills, continue to promote independence, and prevent decompensation. Narrative Note: []
--- NOTE | 2022-12-16 11:10 | BH.SGPN.GN ---
Behaviors/Verbalizations/Mental Status: []Pt alert and oriented, casually dressed and groomed. Eye contact good. Motor activity appropriate. Speech within normal limits. Affect congruent, mood euthymic. Thoughts linear, logical, no signs of hallucinations or delusions. Client Response/Progress/Benefit: []Pt was attentive and contributed in larger group discussion. Pt completed strengths exploration worksheet. Pt able to acknowledge how these strengths are helping pt and can continue to help pt in mental health journey. Reflected on how her flexibility, patience, and optimism have helped pt in the past and continue to help pt with her mental health. Pt wants to start an accomplishment journal to increase focus on her positives. Benefited from identifying personal strengths and strategies for enhancing use of identified strengths. Pt to continue IOP tx to continue use of healthy coping skills, challenge distortions, and prevent decompensation.
--- NOTE | 2022-12-16 13:05 | PCM.BH.PN ---
Progress Note Progress Note: History of Present Illness/Interim History: The patient is a 32-year-old female who is seen in follow-up at the [facility] IOP program and has a history of anxiety and bipolar disorder. I last saw the patient 3 weeks ago and at that time her Wellbutrin was increased to 300 mg daily. The patient is tolerating this well and feels much less depressed now than when she started the program. She feels increasing the Wellbutrin has helped her symptoms improve. She feels she is learning valuable skills in the IOP program that help are meant to manage her mental health issues. She has still has occasional inconsistent attendance due to childcare issues and illness of her children. When she is present however the patient is very engaged in the program and has made progress. She feels that her energy level has improved and is now about normal. She denies any purging or emesis. Her sleep is good at about 7 hours a night. She has some financial stress she is noticing now due to the fact that she is working less often. She denies hopelessness, worthlessness, passive thoughts of , suicidal ideation, homicidal ideation, hallucinations or delusions. She is functioning well when she does work. Current Psychiatric Medications: [] Wellbutrin XL 300 mg p.o. every morning (dose increased 3 weeks ago); Zoloft 150 mg p.o. daily; BuSpar 10 mg p.o. twice daily Mental Status Examination: [] Patient is a 32-year-old female who appears normal for stated age and is casually dressed and groomed with good hygiene. She has no psychomotor agitation or retardation and is ambulatory with a normal gait. She is cooperative during the interview and eye contact is good. Speech is normal rate and rhythm and fluent with no pressure. Mood is minimally depressed. Affect is full and normal. Thought process is goal-directed and organized. Thought content: The patient is hopeful for the future. There is no evidence of passive thoughts of , plan for suicide, suicidal ideation, homicidal ideation, delusions, hallucinations. Reality testing is intact. Judgment is intact. Insight is good. Impulsivity is moderate. Diagnoses: [] 1. Bipolar 2 disorder 2. Generalized anxiety disorder 3. PTSD 4. Cluster B traits 5. History of bulimia with purging in remission Plan: [] The patient will continue the IOP program at in behavioral health at [facility] as the structure, support, education and group therapy will hopefully prevent worsening of the patient's symptoms. She felt safe during the interview and if it anytime she does not feel safe she will let us know or go to the emergency room. No medication changes were made today and the patient will continue to follow-up with her outpatient medical and psychiatric providers and I will see the patient in follow-up in 3 weeks or as needed. Patient continues to observe for evidence of right more rapid cycling or hypomania symptoms but has not evidenced any yet.
--- NOTE | 2022-12-22 09:10 | BH.SGPN.GN ---
Behaviors/Verbalizations/Mental Status: [] Eye contact is good. Motor activity is appropriate. Appearance is casual. Speech is Appropriate. Mood is euthymic. Affect is full. Thoughts are linear and logical. No evidence of psychosis. Reviewed daily check in sheet and no reports of suicidal ideations or intent. Client Response/Progress/Benefit: [] Pt was an active participant in group discussion. Attentive. Emotion for today is happy. Daily symptom tracker notes 01/03 for depression. Pt shared that she developed goals with her program therapist which has increased her motivation. She compelted several goals over the weekend and found that once she started she actually completed more than expected. Feeling accomplished today. Shared how this has helped her mental health, her relationship with her kids, and her overall self-esteem. Stressors include having her inital session with new therapist. Shared way this is anxiety producing and overwhelming. Group empathisized and provided feedback which was beneficial. Will continue in IOP to maintain gains, increase healthy coping, and to improve functioning. Narrative Note: []
--- NOTE | 2022-12-22 10:08 | BH.SGPN.GN ---
Behaviors/Verbalizations/Mental Status: []Eye contact is good. Motor activity is appropriate. Appearance is casual. Speech is Appropriate. Mood is euthymic. Affect is congruent, full. Thoughts are linear and logical. No evidence of psychosis. Client Response/Progress/Benefit: []Pt did well to be an engaged participant in group discussions. Attentive during psychoeducation on SMART goals (Specific, Measurable, Achievable, Realistic, and Time-bound) and engaged in group experiential activity. Participated in an interactive discussion with peers in which they worked together to define what a goal is and the benefits of having goals, providing input and examples throughout. Group identified benefits as: provides motivation, increased confidence, personal growth, and sense of accomplishment. Participated in interactive discussion in which group identified barriers to setting goals and following through with goals. Barriers identified included: lack of motivation, negative thoughts, unrealistic expectations, outside stressors, and not knowing where to start. Benefited from increased awareness of benefits and strategies for goal-setting. Will continue in IOP to continue use of healthy coping skills, challenge distortions, and prevent decompensation.
--- NOTE | 2022-12-25 10:15 | BH.SGPN.GN ---
Behaviors/Verbalizations/Mental Status: []pt alert and oriented, casually dressed and groomed. Eye contact good. Motor activity appropriate. Speech within normal limits. Affect congruent, mood euthymic. Thoughts linear, logical, no signs of hallucinations or delusions.? Client Response/Progress/Benefit: []Pt responded well to session AEB contributing to discussion, taking notes, and listening attentively to others. Group discussed the benefits of managed anger and anger as a secondary emotion. Pt shared perspective on negatives from acting out in anger as damaged relationships and losing sentimental things.? Pt completed worksheet on anger triggers and personal warning signs of anger. Pt identified their biggest triggers as people not listening to her and being lied to.?Appeared to benefit from increased knowledge of the anger cycle as well as personal triggers. Will discharge from IOP tx today as pt has met her tx goals and no longer meets criteria for IOP level of care.? Narrative Note: []
--- NOTE | 2022-12-25 11:10 | BH.SGPN.GN ---
Behaviors/Verbalizations/Mental Status: []Client alert and oriented, casually dressed and groomed. Eye contact good. Motor activity appropriate. Speech within normal limits. Affect congruent, mood euthymic. Thoughts linear, logical, no signs of hallucinations or delusions. Client Response/Progress/Benefit: []Pt was engaged throughout AEB contributing to group discussion and self-reflection. Group finished processing cues to anger worksheet. Pt contributed as group brainstormed healthy coping skills for better managing anger which included: music, walking/exercise, changing the environment, communicating with supports, and journaling. Pt reported she would like to work on skill of self-reflection to help her manage anger responses. Pt appeared to benefit from identifying different techniques to manage anger as well as gaining awareness of potential consequences of unmanaged anger. Will continue IOP tx to increase consistent use of skills, increase confidence, and prevent decompensation.
--- NOTE | 2022-12-25 14:00 | BH.MDN_ITS ---
Multi-Disciplinary Note - Note 30-min Individual Time Started:: 09:30 Date: 12/25/22 Purpose of session/treatment goals addressed:: Purpose of session was to identify treatment progress, complete maintenance plan, and solidify aftercare plans. Eye Contact:: Good Motor Activity:: Appropriate Appearance:: Casual Speech:: Appropriate Mood:: Euthymic Affect:: Congruent Thoughts:: Linear, Logical, No evidence of hallucinations/delusions noted Staff Interventions:: CBT techniques, discharge planning, strengths perspective, other - maintenance plan Client Response:: Client stated feeling bittersweet about today being her last day in IOP. Client reported she can note significant treatment progress since starting IOP. Client shared when first started IOP she was having suicidal thoughts and severely depressed. Client stated she hasn't had suicidal thoughts in several weeks, decrease in depressed symptoms, and improvement in daily functioning. Client has been able to keep up with her daily chores, feels more engaged with her children, and has been doing better with setting boundaries. Client noted additional progress to include: improved ability to challenge negative thoughts, increased confidence, decreased anxiety, and improved ability to manage stress. Client completed maintenance plan with therapist in which she identified triggers, warning signs, self-care activities, and healthy coping skills. Client stated for aftercare she has appointment with her outpatient therapist in two weeks, has psychiatrist appointment next week, and will start [facility] aftercare in 2 weeks. Risks/Concerns:: Denies suicidal ideation, plan or intention to date. future focused. Progress Toward Goals/Plan:: Progress noted with client reporting decrease in depression, no suicidal thoughts in weeks, decrease in anxiety, improved daily functioning, and improved ability to set boundaries. Client has been following through with setting daily goals and using opposite action. Client was able to overcome a setback with increased depressed symptoms two weeks ago. Client showing more consistent use of skills and ability overcome setback. Plan is for client to discharge from [facility] today. Client has established appointments with outpatient providers. Time Stopped:: 09:53
== END 2022-12-25 14:00 | disposition home or self-care (01) ==
LOC: BHIOP 07:29
PROVIDERS: Referring Provider Psychiatry & Neurology Psychiatry; Visit Provider Psychiatry & Neurology Psychiatry
DX: F31.81 Bipolar II disorder (principal); F41.1 Generalized anxiety disorder; F43.10 Post-traumatic stress disorder, unspecified; Z79.899 Other long term (current) drug therapy
CPT/HCPCS: 99214; H2012; H2020; S9480; 90832; 90834

== ENCOUNTER 2023-01-28 08:00 | Outpatient (RCR) | payer MEDICAID, SELFPAY ==
--- NOTE | 2023-01-28 14:00 | BH.SGPN.GN ---
Behaviors/Verbalizations/Mental Status: []Pt alert and oriented, neatly dressed and groomed. Eye contact good. Motor activity appropriate. Speech within normal limits. Affect congruent, mood euthymic and stressed. Thoughts linear, logical, no signs of hallucinations or delusions. Client Response/Progress/Benefit: []Pt responded well to session AEB sharing and listening attentively to others. Pt reported she saw her therapist this week and has been taking her medications consistently. Pt did not have an appointment with her psychiatrist this week. Pt reports she has been using heathy coping skills to cope with the recent stressor of getting fired. Pt shared that her use of self-compassion and opposite action has helped a lot. Pt participated in group discussion defining affirmations and why they are important. Pt provided insight throughout clinician?s presentation of tips for writing personal affirmations. Pt wrote own affirmations, including ?one day at a time.? Pt appeared to benefit from increased knowledge of affirmation writing and increased self-awareness. Will continue aftercare treatment to reinforce healthy coping skills and promote gains. ? Narrative Note: []
--- NOTE | 2023-02-25 16:10 | BH.DS_ITS ---
Discharge Summary - Demographics Date of Admission:: 01/28/23 Discharge Date: 02/25/23 Presenting Problems at Admission:: Pt discharged from IOP tx and transitioned to IOP aftercare to maintain gains pt made in IOP and to reinforce healthy coping skills. At admission to IOP aftercare, pt continued to report symptoms of depression, anxiety, and mood instability but of reduced intensity and frequency. Pt also was experiencing work stress, negative thinking, and ongoing relationship stress. Discharge Diagnoses:: Bipolar 2 disorder F31.81; Generalized anxiety disorder; PTSD; Cluster B traits; History of bulimia with purging by emesis Reason for Discharge:: Pt came for one IOP aftercare session and then did not show for four weeks in a row. Per [facility] aftercare policy, pt did not meet the attendance requirements and was discharged at the end of 02/25/23. - Treatment Progress During Treatment & Response: No additional progress to document for pt as pt only attended one IOP aftercare session. Pt did report she had been doing well with following through with her IOP goals and she has been utilizing healthy coping skills since IOP discharge. Issues Still to be Addressed:: Pt recently lost her job and can benefit from processing and managing this stressor. Pt is also working on increasing self- worth, setting and maintaining healthy boundaries, and maintaining gains made in IOP. Discharge Recommendations/Instructions:: Pt will continue with her outpatient therapist for continuity of care. Pt will also follow up with her outpatient psychiatrist for medication management. Discharge Handout: Complete Discharge Handout with client on aftercare options and continuity of care.
== END 2023-02-25 14:10 | disposition home or self-care (01) ==
LOC: BHOG 08:00
PROVIDERS: Referring Provider Psychiatry & Neurology Psychiatry; Visit Provider Psychiatry & Neurology Psychiatry
DX: F31.81 Bipolar II disorder (principal); F41.1 Generalized anxiety disorder; F43.10 Post-traumatic stress disorder, unspecified
CPT/HCPCS: 90853